=== PATIENT | male | born 1990 | race Caucasian/White ===

== ENCOUNTER 2017-01-29 18:21 | Emergency (ER) | payer SELFPAY ==
[2017-01-29] MEDS ORDERED: 0.9 % SODIUM CHLORIDE 100 ML IV ONE (19:01)
--- NOTE | 2017-01-29 19:15 | ED Physician Documentation ---
General Adult - HISTORIAN Historian: patient, spouse - HPI Stated Complaint: laceration Chief Complaint: Laceration/Recheck/Suture Additional Information: 1in lac rt mid index lat aspect u shaped apex distal well sealed occ yest 1600 hrs. pt has kept clean bandaids on since Onset: days ago (1) Timing: still present Severity: mild - ROS CONST: no problems EYES/ENT: none CVS/RESP: none GI/: none MS/SKIN/LYMPH: none NEURO/PSYCH: denies: headache, fainting, dizziness, tingling, numbness - PAST HX Past History: none Other History: none Surgeries/Procedures: none Immunizations: denies: UTD Allergies/Adverse Reactions: Allergies Allergy/AdvReac Type Severity Reaction Status Date / Time No Known Allergies Allergy Verified 01/29/17 19:01 Home Medications: Ambulatory Orders Medication Instructions Recorded NK [NK] 01/29/17 - SOCIAL HX Smoking History: non-smoker Alcohol Use: none Drug Use: none - FAMILY HX Family History: No - VITAL SIGNS Vital Signs: Vital Signs Temp Pulse Resp BP Pulse Ox 98.2 F 77 18 121/61 98 01/29/17 18:56 01/29/17 18:56 01/29/17 18:56 01/29/17 18:56 01/29/17 18:56 - REVIEWED ASSESSMENTS Nursing Assessment Reviewed: Yes Vitals Reviewed: Yes ED Results Lab/Radiology - Orders Orders: ED Orders Category Date Time Status 0.9 % Sodium Chloride [Sodium Chloride] 100 ml Med 01/29/17 19:01 Discontinued IV .STK-MED Cephalexin [Keflex] Med 01/29/17 19:11 Once 1,000 mg PO NOW ONE Diph,Pertuss(Acell),Tet Vac/Pf [Adacel] Med 01/29/17 19:11 Once 0.5 ml IM .ONCE ONE General Adult Physical Exam - PHYSICAL EXAM GENERAL APPEARANCE: no distress EENT: eye inspection normal NECK: normal inspection RESPIRATORY: no resp distress, breath sounds normal CVS: reg rate & rhythm, heart sounds normal ABDOMEN: soft, no distension, non-tender SKIN: warm/dry, normal color. No: cyanosis, diaphoresis, jaundice EXTREMITIES: non-tender, normal range of motion NEURO: oriented X3 Discharge Clincal Impression: finger laceration Referrals: Primary Doctor,No [Primary Care Provider] - 2 Days Home Medications: Ambulatory Orders NK [NK] 01/29/17 Comments: to keep clean soap water use betadine bandaid w/tape at edges.prn po keflex lesion sealed flap viable will not suture Condition: Good Disposition: 01 HOME, SELF-CARE Decision to Admit: NO Decision Time: 19:19
[2017-01-29] MEDS ORDERED: PHARMACY KEY 1 EACH EACH MC ONE (19:18)
[2017-01-29] MEDS: DIPH,PERTUSS(ACELL),TET VAC/PF 0.5 ML DISP.SYRIN IM ONE (19:20)
[2017-01-29] MEDS: CEPHALEXIN 250 MG CAPSULE PO ONE (19:21)
[2017-01-29 19:52] VITALS: BP 118/67
== END 2017-01-29 19:51 | disposition home or self-care (01) ==
LOC: ED 18:21
DX: S61.212D Laceration without foreign body of right middle finger without damage to nail, subsequent encounter (principal); X58.XXXA Exposure to other specified factors, initial encounter; Y93.9 Activity, unspecified; Y99.9 Unspecified external cause status
CPT/HCPCS: 90471; 90715; 99283